=== PATIENT | female | born 1950 | race Caucasian/White ===

== ENCOUNTER 2020-06-29 02:47 | Emergency (ER) | payer OTHER, SELFPAY ==
--- NOTE | ~2020-06-29 | XR_ITS ---
EXAMINATION: LUMBOSACRAL SPINE 3 VIEWS CLINICAL INFORMATION: Back pain. COMPARISON: None. TECHNIQUE: AP, lateral, spot lateral views of the lumbosacral spine are provided. FINDINGS: There are no fractures. The lumbar vertebrae are in normal alignment. There is disc height loss at L5/S1. There is disc height loss at T12/L1. Disc heights and vertebral body heights are otherwise well-preserved. There is slight increased sclerosis within the facet joints. XR/XR lumbar spine 2-3V IMPRESSION: Mild degenerative change without evidence of acute injury.
[2020-06-29 02:59] VITALS: BP 169/82; PULSE 88; RESP 16; TEMP 36.6; O2SAT 97; BMI 21.5
--- NOTE | 2020-06-29 03:33 | ED_ITS ---
HPI - Back Pain/Injury General Chief Complaint: Back Pain/Injury Stated Complaint: Legs Pain Time Seen by Provider: 06/29/20 03:33 Source: patient Mode of arrival: ambulatory Limitations: no limitations History of Present Illness HPI Narrative: Patient with chronic back pain sciatica seen by Orthopedics last week and PCP plan to have MRI comes here for pain in lower back and now radiating to both legs without any weakness no recent injury no urinary or bladder incontinence patient able to ambulate no focal deficit MD elicited complaint: back pain Pertinent past history: prior back pain Onset (ago): year(s) Timing: constant Severity: moderate Similar Symptoms Previously: Yes Quality: dull Location: lumbar spine Radiation: left upper leg and right upper leg Exacerbating factors: movement Relieving factors: none Related Data Previous Rx's Medication Instructions Recorded cyclobenzaprine 5 mg PO Q8H #20 tab 06/29/20 lidocaine [Salonpas (lidocaine)] 1 patch TOPICAL DAILY PRN #15 ea 06/29/20 oxycodone 5 mg PO Q6H PRN #20 tab 06/29/20 Allergies Allergy/AdvReac Type Severity Reaction Status Date / Time No Known Allergies Allergy Verified 06/29/20 03:33 Review of Systems Review of Systems: Yes all other systems are reviewed and are negative [facility] Past Medical History Medical History No known health problems Social History Social History Advance Directives: No Physical Exam Vital Signs: Vital Signs: Last Vital Signs Temp 97.9 F 06/29/20 02:59 Pulse 88 06/29/20 02:59 Resp 16 06/29/20 02:59 BP 169/82 H 06/29/20 02:59 Pulse Ox 97 06/29/20 02:59 Body Mass Index 21.5 Const: General: no acute distress Nutritional Appearance: cachectic and thin Orientation/consciousness: patient oriented x3 HENMT: Head: Yes normocephalic and Yes atraumatic Eyes: General: appearance normal, both eyes and all related structures Neck: Neck: Yes normal visual inspection and Yes full ROM Chest: Chest palpation & inspection: normal inspection of the chest and normal palpation of entire chest wall Resp: Effort & Inspection: normal respiratory effort Auscultation: clear to auscultation bilaterally Cardio: Rate: regular rate Rhythm: regular rhythm Heart sounds: S1 normal heart sound present and S2 normal heart sound present GI: Inspection: Yes normal to inspection Palpation (GI): Soft to palpation and nontender : General: Yes no CVA tenderness Back/Spine/Pelvis: Back: no CVA tenderness Thoracic/Lumbar Spine: pain with thoraco-lumbar ROM, paraspinal muscle tenderness, thoraco-lumbar spasm, lumbar spinal tenderness and straight leg raise positive (At 60 degrees) right Pelvis: sciatic notch tenderness on the right Skin: General skin exam: no rashes or lesions noted Neuro: General: patient oriented x3, gait normal, moves all extremities, Normal light touch and pain sensation and no focal motor deficits Extrem: General: Yes normal to inspection, Yes full ROM, Yes normal gait and No pedal edema MDM - Back Pain/Injury MDM Narrative Medical decision making narrative: Patient with chronic low back pain already been followed with Orthopedics x-ray negative for any vertebral fractures will discharge her home on pain medication muscle relaxers and advised to follow-up with pain clinic and Orthopedics Differential Diagnosis Differential diagnosis: Likely sciatica Discharge Plan Discharge Clinical Impression: Sciatica Qualifiers: Laterality: bilateral Qualified Code(s): M54.31 - Sciatica, right side Patient Disposition: Home, Self-Care Instructions: Sciatica (ED) Additional Instructions: Rest, take pain medication and muscle relaxant as prescribed and follow with Orthopedics as scheduled Prescriptions: New cyclobenzaprine 10 mg tablet 5 mg PO Q8H Qty: 20 RF: 0 oxycodone 5 mg tablet 5 mg PO Q6H PRN (Reason: Pain (Scale Score 4-6)) Qty: 20 RF: 0 lidocaine [Salonpas (lidocaine)] 4 % adhesive patch,medicated 1 patch topical DAILY PRN (Reason: pain) Qty: 15 RF: 0
[2020-06-29] MEDS: oxyCODONE HCl Immed Release 5 MG TABLET PO (04:30)
[2020-06-29] MEDS: Lidocaine 4 % Patch ADH..PATCH 1 PATCH TRANSDERMA (04:35)
== END 2020-06-29 05:00 | disposition home or self-care (01) ==
PROVIDERS: Emergency Provider Internal Medicine
DX: M54.41 Lumbago with sciatica, right side (principal)
CPT/HCPCS: 72100; 99283